=== PATIENT | female | born 1965 | race Two or more races ===

== ENCOUNTER 2024-07-25 09:25 | Emergency (ER) | payer OTHER, SELFPAY ==
[~2024-07-25] VITALS: Ht 157.5 cm; Wt 86.9 kg
[2024-07-25 10:14] VITALS: BP 154/97; PULSE 62; RESP 16; TEMP 97.6; O2SAT 94
--- NOTE | 2024-07-25 10:31 | DVH ---
EXAMINATION: XY L RIB X RAY INDICATION: Fall. R/o fracture COMPARISON: None TECHNIQUE: Frontal view of the chest and 4 views of the left ribs history FINDINGS: No focal consolidation, pleural effusion or significant pneumothorax. Normal cardiomediastinal silhou ette. No displaced LEFT rib fracture. IMPRESSION: No acute cardiopulmonary disease. No displaced LEFT rib fracture.
[2024-07-25] MEDS: KETOROLAC TROMETH 30 MG/ML 1ML VIAL IM ONE (10:53)
[2024-07-25] MEDS ORDERED: LIDO5PAD22 EX (10:53)
--- NOTE | 2024-07-25 10:55 | ED.PDOC ---
Back pain HPI HPI Comments 59-year-old female with no pertinent MHx presents with a chief complaint of nonradiating left-sided rib pain x2 days. Onset occurred after she slipped while patient and heavy box onto her car Onset was sudden and pain has been persistent since. Pain worsens with lateral movements taking deep breaths and is able to get some relief with [id number] Tylenol and Motrin. Currently denies any chest pain shortness of breath Chief Complaint: Rib Pain Time Seen by MD: 09:41 Reviewed Notes: Nurses Notes, Medications, Allergies Allergies: Coded Allergies: NO KNOWN ALLERGIES (Unverified , 07/25/24) Information Source: Patient Mode of Arrival: Ambulatory Past Medical History Past Medical History (Other): Graves dx Surgical History: Denies all surgeries PIPING ENGINEER History: Denies all PIPING ENGINEER Hx Family History Family History: Reviewed,noncontributory to illness Social History Smoker: Non-Smoker Alcohol: Denies ETOH Use Drugs: Denies Drug Use All Other Systems: Reviewed and Negative (per hpi) Physical Exam General Appearance: No Apparent Distress, Normal HEENT: Normal ENT Inspection, Pharynx Normal, TMs Normal Neck: Full Range of Motion, Non-Tender, Normal, Normal Inspection Respiratory: Chest Non-Tender, Lungs Clear, No Accessory Muscle Use, No Respiratory Distress, Normal Breath Sounds Cardiovascular: No Edema, No JVD, No Murmur, No Gallop, Normal Peripheral Pulses, Regular Rate/Rhythm Breast Exam: Deferred Gastrointestinal: No Organomegaly, Non Tender, No Pulsatile Mass, Normal Bowel Sounds, Soft Genitalia: Deferred Pelvic: Deferred Rectal: Deferred Extremities: No calf tenderness, Normal capillary refill, Normal inspection, Normal range of motion, Non-tender, No pedal edema Musculoskeletal : Apperance: Normal Neurologic: Alert, structural engineering technician II-XII nml as Tested, No Motor Deficits, Normal Affect, Normal Mood, No Sensory Deficits Cerebellar Function: Normal Reflexes: Normal Skin: Dry, Normal Color, Warm Lymphatic: No Adenopathy Was a procedure done? Was a procedure done?: No Back Pain Differential Dx Differential Diagnosis: Fracture, Musculoskeletal Pain X-Ray, Labs, Meds, VS Vital Signs Date Time Temp Pulse Resp B/P (MAP) Pulse Ox O2 Delivery O2 Flow Rate FiO2 07/25/24 10:14 97.6 62 16 154/97 (116) 94 97.6 07/25/24 10:14 62 16 94 Room Air 07/25/24 09:36 97.6 62 16 154/97 (116 94 97.6 X-Ray, Labs, Meds, VS Comment No signs of rib fractures. No signs of pneumothorax. Patient otherwise healthy. Good respiratory effort. Able to clear secretions. Pain control On reevaluation, patient had symptomatic improvement. Patient is stable for discharge at this time. External notes reviewed. Test results and diagnostic imaging interpreted. All diagnostic findings, discharge care, education and instructions provided Follow-up with PCP in 2 to 3 days Patient verbalized understanding and agreed to treatment plan Vital signs stable, afebrile, no acute distress noted Patient ambulatory with strong steady gait Advised to return precautions for any new or worsening symptoms, return to ER immediately for re-evaluation Patient is aware that the purpose of this visit was for an acute medical emergency requiring emergent stabilization. Chronic conditions, including malignancies have not been ruled out. Patient is instructed to follow up with PCP as directed and discharge instructions for continued care and workup. If unable to arrange follow-up, patient is to return to the emergency department for reassessment. Patient (parent or legal guardian if applicable) was given verbal and written discharge instructions and acknowledges understanding. Time of 1ST Reevaluation: 10:51 Reevaluation 1ST: Improved Patient Education/Counseling: Diagnosis, Treatment Family Education/Counseling: Diagnosis, Treatment Departure 1 Departure Time of Disposition: 10:53 Impression: Primary Impression: Rib pain on left side Disposition: 01 HOME / SELF CARE / HOMELESS Condition: Stable e-Prescriptions Lidocaine (Lidocan) 5 % Pad 5 % EX [id number] PRN for 30 Days, #30 PAD 0 Refills Prov: KENNETH PONCE NP 07/25/24 Discharged With: Self Critical Care Note Critical Care Time?: No Stability Stability form required: No Heart Score Heart Score: Heart Score Response (Comments) Value History N/A 0 EKG N/A 0 Age N/A 0 Risk Factors N/A 0 Troponin N/A 0 Total 0 KENNETH PONCE LOCATOR SPECIALIST Jul 25, 2024 10:55
== END 2024-07-25 11:06 | disposition home or self-care (01) ==
LOC: ER 09:25
DX: R07.81 Pleurodynia (principal)
CPT/HCPCS: 71101; 96372; 99283; J1885